=== PATIENT | male | born 1985 | race Caucasian/White ===

== ENCOUNTER 2022-03-22 20:30 | Emergency (ER) | payer SELFPAY ==
[~2022-03-22] VITALS: Ht 170.2 cm; Wt 77.0 kg
[2022-03-22] MEDS ORDERED: SODIUM CHLORIDE 0.9% 1,000 ML IV ONE (21:15)
[2022-03-22] MEDS ORDERED: LEVETIRACETAM 1000MG PREMIX 100 ML IV ONE (22:00)
[2022-03-22 22:36] LABS: CLARITY URINE CLEAR (CLEAR); COLOR URINE YELLOW (YELLOW); KETONES URINE NEGATIVE (NEGATIVE); LEUKOCYTE ESTERASE URINE NEGATIVE (NEGATIVE); NITRITE URINE NEGATIVE (NEGATIVE); OCCULT BLOOD URINE NEGATIVE (NEGATIVE); PH URINE 6.5 (4.5-8.0); PROTEIN URINE TRACE (NEGATIVE); SPECIFIC GRAVITY URINE 1.019 (1.005-1.030); UROBILINOGEN URINE 0.2 E.U./dL (0.2-1.0)
[2022-03-22 22:51] LABS: *AMPHETAMINES SCREEN URINE NEGATIVE (NEGATIVE); *BARBITURATES SCREEN URINE NEGATIVE (NEGATIVE); *BENZODIAZEPINES SCREEN URINE NEGATIVE (NEGATIVE); *COCAINE SCREEN URINE NEGATIVE (NEGATIVE); CANNABINOID URINE SCREEN NEGATIVE (NEGATIVE); METHADONE URINE SCREEN NEGATIVE (NEGATIVE); OPIATES URINE SCREEN NEGATIVE (NEGATIVE); PHENCYCLIDINE URINE SCREEN NEGATIVE (NEGATIVE)
[2022-03-22 22:59] LABS: HEMATOCRIT. 41.7 % (42.0-52.0); HEMOGLOBIN. 14.1 g/dL (14.0-18.0); MEAN CORPUSCULAR HEMOGLOBIN 29.4 pg (28.0-32.0); MEAN PLATELET VOLUME 9.5 fl (7.4-10.4); PLATELET 188 x1000/uL (130-400); RED BLOOD CELL COUNT 4.79 mill/uL (4.7-6.1); RED CELL DISTRIBUTION WIDTH 12.6 % (11.6-14.6)
[2022-03-22 23:03] LABS: CHLORIDE 104 mEq/L (98-107)
[2022-03-22 23:11] LABS: CREATINE KINASE 351 IU/L (39-308); ETHANOL BLOOD < 10 mg/dL
[2022-03-23 00:25] LABS: PLATELET ESTIMATE NORMAL
[2022-03-23] MEDS ORDERED: KEPP500 MT (01:05)
[2022-03-23 01:30] VITALS: BP 125/82
== END 2022-03-23 01:30 | disposition home or self-care (01) ==
LOC: ER 20:30
DX: R56.9 Unspecified convulsions (principal)
CPT/HCPCS: 36415; 70450; 80053; 80305; 80320; 81003; 82550; 85025; 96365; 99284; J1953; J7030; G0480